=== PATIENT | female | born 1970 | race African-American/Black ===

== ENCOUNTER 2017-12-12 07:59 | Outpatient (CLI) | payer BC ==
--- NOTE | 2017-12-12 10:09 | MRI ---
NONCONTRAST MRI CERVICAL SPINE: 12/12/2017 HISTORY: Cervical radiculitis. Spinal stenosis. The patient complains of neck pain and numbness in both arms for three years. COMPARISON: None available. FINDINGS: The visualized base of the brain and the cervicomedullary junction demonstrate a normal MRI appearanc e. C2-C3: There is mild disk osteophyte complex, which slightly narrows the ventral subarachnoid space. The neural foramina are patent. C3-C4: There is mild disk osteophyte complex, narrowing the ventral subarachnoid space. There is mi ld left-sided neural foraminal narrowing. The right neural foramen is patent. C4-C5: There are mild endplate degenerative changes present. There is loss of intervertebral disk h eight. There is broad-based disk osteophyte complex present, which results in generalized narrowing of the central spinal canal and flattening at the anterior aspect of the spinal cord, but there is no rmal signal intensity in the spinal cord. There is mild to moderate left-sided neural foraminal narr owing at the C4-C5 level. There is mild right neural foraminal narrowing. C5-C6: There are mild endplate degenerative changes. There is loss of intervertebral disk height. There is a broad-based disk osteophyte present, which results in generalized narrowing of the central spinal canal and flattening at the anterior aspect of the spinal cord, but there is normal signal in tensity in the spinal cord. There is severe left-sided neural foraminal narrowing. The right neural foramen is patent. C6-C7: There is a mild disk osteophyte complex, which results in slight effacement of the ventral chong barachnoid space. There is mild to moderate left-sided neural foraminal narrowing, but the right wanda ral foramen is patent. C7-T1: There is a mild disk osteophyte complex, which results in minimal narrowing of the ventral chong barachnoid space. There is mild bilateral neural foraminal narrowing. There is straightening of the normal cervical lordotic curvature. IMPRESSION: Multilevel degenerative changes present with findings greatest at the C4-C5 and C5-C6 levels. There is severe left-sided neural foraminal narrowing at the C5-C6 level. POS: [facility]
== END 2017-12-12 08:00 | disposition home or self-care (01) ==
LOC: TBSIIMAG 07:59
PROVIDERS: ATTEND Orthopaedic Surgery Hand Surgery
DX: M47.22 Other spondylosis with radiculopathy, cervical region (principal); M48.02 Spinal stenosis, cervical region; M99.81 Other biomechanical lesions of cervical region
CPT/HCPCS: 72141

== ENCOUNTER 2018-02-20 05:39 | Day surgery (SDC) | payer BC ==
[2018-02-18 11:46] VITALS: BMI 29.7
[2018-02-20] MEDS ORDERED: CEFAZOLIN 2 GM/50 ML BAG ONE ×2 (06:12→06:13)
[2018-02-20] MEDS ORDERED: Bupivacaine PF 0.5% 30 ML VIAL ONE ×2 (06:39→07:17)
[2018-02-20] MEDS ORDERED: Bacitracin Zinc Ointment 30 gm TUBE ONE (06:39)
[2018-02-20] MEDS ORDERED: Betamet Acet/Betamet Na Ph 30 MG/5 ML VIAL ONE ×2 (06:39→09:02)
[2018-02-20] MEDS ORDERED: Fentanyl 100 MCG/2 ML VIAL ONE ×3 (07:08→10:14)
[2018-02-20 07:11] LABS: #Eosinphils 0.3 thou/uL (0.0-0.7); #Lymphocytes 2.1 thou/uL (1.20-3.40); #Monocytes 0.5 thou/uL (0.11-0.59); #Neutrophils 3.2 thou/uL (1.40-6.50); %Basophils 0.5 % (0.0-1.0); %Lymphocytes 34.9 % (21.0-51.0); %Monocytes 7.8 % (0.0-10.0); %Neutrophils 51.8 % (42.0-75.0); Hemoglobin 12.9 g/dL (12.0-16.0); Mean Corpuscular HGB CONC 32.6 g/dL (32.0-36.0); Mean Corpuscular Hemoglobin 28.2 pg (27.0-31.0); Mean Corpuscular Volume 86.5 fL (78.0-98.0); Mean Platelet Volume 7.5 fL (7.4-10.4); Platelet Count 320 thou/uL (130-400); RBC Distribution Width 12.9 % (11.5-14.5); Red Blood Cell (RBC) Count 4.57 mill/uL (4.20-5.40); White Blood Cell (WBC) Count 6.2 thou/uL (4.8-10.8)
[2018-02-20] MEDS ORDERED: Midazolam HCl 2 mg/2 ml Vial ONE (07:27)
[2018-02-20] MEDS ORDERED: HYDROmorphone 2 MG/ML VIAL ONE (09:20)
[2018-02-20] MEDS ORDERED: Ketorolac Tromethamine 30 MG/ML VIAL ONE ×2 (10:22→12:02)
[2018-02-20] MEDS ORDERED: Lidocaine 1% PF 5 ML VIAL ONE (12:02)
[2018-02-20] MEDS ORDERED: PROPOFOL 200 MG/20 ML VIAL ONE (12:02)
[2018-02-20] MEDS ORDERED: Ondansetron PF 4 MG/2 ML Vial ONE (12:02)
[2018-02-20] MEDS ORDERED: PROVENTIL INHALER 6.7 G (200 INHALATIONS) ONE (12:02)
[2018-02-20] MEDS ORDERED: Dexamethasone 20 MG/5 ML VIAL ONE (12:02)
--- NOTE | 2018-02-23 09:42 | OP ---
PREOPERATIVE DIAGNOSES: 1. Right pronator teres syndrome. 2. Left pronator teres syndrome. 3. Right carpal tunnel syndrome. 4. Left carpal tunnel. POSTOPERATIVE DIAGNOSES: 1. Right pronator teres syndrome. 2. Left pronator teres syndrome. 3. Right carpal tunnel syndrome. 4. Left carpal tunnel. FINDINGS: Very tight pronator and the arc over the median nerve of the deep flexor at both pronator tunnel sites and stippling over a 5-6 mm area with early hourglass formation in the center of the car pal canal at both carpal tunnel sites. TOURNIQUET TIME: On the right, 30 minutes; on the left 30 minutes total. INJECTABLES: 15 mL half percent Marcaine: 7.5 at each of the 4 incisions or 15 mL each side or total of 30 mL half percent Marcaine . Other injectables drip technique over the median nerve a t each of the 4 incisions. ESTIMATED BLOOD LOSS: Bilaterally was less than or equal to 5 mL INDICATIONS: The patient failed conservative treatment with positive pronator compression test, posi tive direct compression at the pronator site, median nerve from here distally and proximally an d positive carpal tunnel exam and electrodiagnostics. Failed conservative treatment. ANESTHESIA: General LMA technique by [facility]. DESCRIPTION OF PROCEDURE: First, we prepped and draped the right side, outlined the incision that wa s zigzag beginning over the arterial pulse at the antecubital fossa, coursing zigzag just barely radi al to the palmaris longus tendon distally 8 cm from the crease. We then outlined the same as the sta ndard carpal tunnel incision as well, which was in line medial lateral with the ring finger as far pr oximal and 5 mm distal to the volar wrist flexion crease. We then exsanguinated the limb, gave injec tion of 15 mL of 0.5% Marcaine divided equally between these two incisions with no epinephrine and be ainsley. First, we approached the pronator site, made a zigzag incision, found and protected with blunt dissection the medial brachial cutaneous branches and the fat, identified the superficial radial nerv e and just radial to this, we were able to identify the one branch of the pronator teres, performed f ractional lengthening, then went through the lacertus fibrosus, releasing it, but not damaging the bi ceps tendon, found the median nerve as it coursed down into its valley and began to release all soft tissue. At the lacertus, released the fascia between the lacertus and the pronator, we then released the main pronator tendon with another fractional lengthening and at that point could visualize free the branch of the anterior interosseous nerve. From here, we dissected through soft tissue, and the standard between the flexor tendon heads, , as was released as well as the superficial flexor as well. Now, the median nerve was complete ly free. We placed 0.5 mL of Celestone in this area covered with a moist dressing and then proceeded to carpal tunnel. Carpal tunnel, we made our 2.5 cm incision carried through skin, subcutaneous tissue, and despite the injection, there was easy visualization, identified the transverse carpal ligament and entered in it s center portion just barely ulnar to the palmaris longus insertion on the transverse carpal ligament . Carried through skin and subcutaneous tissue, palmaris longus tear until we found the median nerve and the tendons. We then under direct visualization, released from here proximal using a combinatio n of Stutsman blade and tenotomy scissors. We used the same combination to release from the mid portio n proximally as we did distally with no undue damage. We released the tourniquet. Both wounds had e xcellent hemostasis and estimated blood as stated above was less than 10 mL. We then closed the pron ator incision with a running 3-0 Monocryl, which gave excellent opposition, so we then placed Steri-S trips with benzoin. We closed the carpal tunnel incision with interrupted 4-0 nylon in a mattress pattern and the patient had no complications.
== END 2018-02-20 11:48 | disposition home or self-care (01) ==
LOC: SDC 05:39
PROVIDERS: ATTEND Orthopaedic Surgery Hand Surgery
PROC: 01N50ZZ Release Median Nerve, Open Approach (ICD-10-PCS; principal; 2018-02-20)
DX: G56.13 Other lesions of median nerve, bilateral upper limbs (principal); G56.03 Carpal tunnel syndrome, bilateral upper limbs; E78.5 Hyperlipidemia, unspecified; F32.9 Major depressive disorder, single episode, unspecified; I10 Essential (primary) hypertension; M48.02 Spinal stenosis, cervical region; M54.12 Radiculopathy, cervical region; F17.210 Nicotine dependence, cigarettes, uncomplicated; Z79.52 Long term (current) use of systemic steroids; Z79.82 Long term (current) use of aspirin; Z79.899 Other long term (current) drug therapy
CPT/HCPCS: 85025; 85652; 96374; 96375; J0702; J1100; J1170; J1885; J2001; J2250; J2405; J2704; J3010; S0020

== ENCOUNTER 2018-12-10 10:02 | Outpatient (CLI) | payer BC ==
--- NOTE | 2018-12-10 10:39 | RAD ---
XR Knee Rt 3 View HISTORY: Right knee pain COMPARISON: None. FINDINGS: There are severe arthritic changes of the knee with prominent spur formation of the medial lateral and patellofemoral compartments area there is mild medial compartment narrowing present. There is a small joint effusion. IMPRESSION: Marked arthritic changes of the knee.
== END 2018-12-10 10:03 | disposition home or self-care (01) ==
LOC: BICRAD 10:02
PROVIDERS: ATTEND Family Medicine
DX: M25.561 Pain in right knee (principal); M17.11 Unilateral primary osteoarthritis, right knee

== ENCOUNTER 2019-06-02 08:34 | Outpatient (CLI) | payer BC ==
--- NOTE | 2019-06-02 09:32 | MMO ---
Bilateral MAMMO Bilat Screen [facility]. CLINICAL HISTORY: Patient is 48 years old and is seen for screening. The patient has no family history of breast cancer. The patient has no personal history of cancer. VIEWS: The views performed were: bilateral craniocaudal with tomosynthesis and bilateral mediolateral oblique with tomosynthesis. FILMS COMPARED: The present examination has been compared to prior imaging studies performed at [facility] on 10/07/2014 and 03/13/2017. This study has been interpreted with the assistance of computer-aided detection. MAMMOGRAM FINDINGS: There are scattered fibroglandular densities. There are no suspicious masses, suspicious calcifications, or new areas of architectural distortion. IMPRESSION: THERE IS NO MAMMOGRAPHIC EVIDENCE OF MALIGNANCY. A ROUTINE FOLLOW-UP MAMMOGRAM IN 1 YEAR IS RECOMMENDED. THE RESULTS OF THIS EXAM WERE SENT TO THE PATIENT. ACR BI-RADS Category 1 - Negative MAMMOGRAPHY NOTE: 1. A negative mammogram report should not delay a biopsy if a dominant of clinically suspicious mass is present. 2. Approximately 10% to 15% of breast cancers are not detected by mammography. 3. Adenosis and dense breasts may obscure an underlying neoplasm. Reported by: MARYURI HERNANDEZ MD Electonically Signed: [id number]
== END 2019-06-02 08:35 | disposition home or self-care (01) ==
LOC: BICMAMMO 08:34
PROVIDERS: ATTEND Family Medicine
DX: Z12.31 Encounter for screening mammogram for malignant neoplasm of breast (principal)
CPT/HCPCS: 77063; 77067

== ENCOUNTER 2019-09-08 15:15 | Inpatient (IN) | payer BC ==
[2019-09-13] MEDS ORDERED: Vancomycin 1 GM/200 ML BAG ONE (07:20)
[2019-09-13] MEDS ORDERED: Sodium Chloride 0.9% 100 ML ONE (07:20)
[2019-09-13] MEDS ORDERED: Tranexamic Acid 1,000 MG/10 ML VIAL ONE (07:20)
[2019-09-13] MEDS ORDERED: Midazolam HCl 2 mg/2 ml Vial ONE (08:23)
[2019-09-13] MEDS ORDERED: Fentanyl 100 MCG/2 ML VIAL ONE ×5 (08:23→12:25)
[2019-09-13] MEDS ORDERED: HYDROcodone/Acetaminophen 10/325 mg Tablet PO PRN (09:10)
[2019-09-13] MEDS ORDERED: Ondansetron PF 4 MG/2 ML Vial IVP PRN ×2 (09:10→09:49)
[2019-09-13] MEDS ORDERED: Zolpidem Tartrate 5 MG TAB PO PRN ×2 (09:10→09:49)
[2019-09-13] MEDS ORDERED: traMADol HCl 50 MG TAB PO PRN ×2 (09:10)
[2019-09-13] MEDS ORDERED: Promethazine HCl 25 MG/ML VIAL IM PRN ×2 (09:10→09:49)
[2019-09-13] MEDS ORDERED: Fentanyl 100 MCG/2 ML VIAL IV PRN (09:11)
[2019-09-13] MEDS ORDERED: Ropivacaine HCl/PF 250 ML in Premix Bag 1 BAG NERVE BLCK SCH (09:14)
[2019-09-13] MEDS ORDERED: Bupivacaine PF 0.5% 30 ML VIAL ONE ×2 (09:16→11:01)
[2019-09-13] MEDS ORDERED: diphenhydrAMINE 25 MG CAP PO PRN (09:49)
[2019-09-13] MEDS ORDERED: Acetaminophen 325 MG TAB PO PRN (09:49)
[2019-09-13] MEDS ORDERED: Nitroglycerin 0.4 MG TAB (25 Tab Bottle) SL PRN (09:52)
[2019-09-13] MEDS ORDERED: Tranexamic Acid 1,000 MG in Sodium Chloride 0.9% 100 ML IVPB SCH (10:00)
[2019-09-13] MEDS ORDERED: Ergocalciferol 1.25 MG(50,000 UNITS) CAP PO SCH (10:00)
[2019-09-13] MEDS ORDERED: PROPOFOL 200 MG/20 ML VIAL ONE (10:53)
[2019-09-13] MEDS ORDERED: Lidocaine 1% PF 5 ML VIAL ONE (10:53)
[2019-09-13] MEDS ORDERED: Dexamethasone 20 MG/5 ML VIAL ONE (10:53)
[2019-09-13] MEDS ORDERED: Ondansetron PF 4 MG/2 ML Vial ONE (10:53)
[2019-09-13] MEDS ORDERED: Bupivacaine HCl 0.5%/Epinephrine 1:200,000/PF 30 ml Vial ONE (10:53)
[2019-09-13] MEDS ORDERED: Ropivacaine 0.2% HCl/PF (40 MG/20 ML VIAL) ONE (10:53)
[2019-09-13] MEDS ORDERED: EPINEPHrine 1 MG/ML AMP ONE (11:01)
[2019-09-13] MEDS ORDERED: Ropivacaine 0.2% HCl/PF 20 ML ONE (11:01)
[2019-09-13] MEDS ORDERED: hydrALAZINE 20 MG/ML VIAL ONE (12:49)
[2019-09-13] MEDS ORDERED: Ketorolac Tromethamine 30 MG/ML VIAL ONE (12:59)
[2019-09-13] MEDS ORDERED: Hydrochlorothiazide 25 MG TAB PO SCH (14:45)
[2019-09-13] MEDS ORDERED: Losartan 25 MG TAB PO SCH (14:45)
[2019-09-13] MEDS: Ketorolac Tromethamine 30 MG/ML VIAL IVP SCH ×2 (14:56→19:18)
--- NOTE | 2019-09-13 15:09 | OP ---
DATE OF PROCEDURE: 09/13/2019 RESTROOMS OR LOUNGES MAID: Destin Barragan PA-C PREOPERATIVE DIAGNOSIS: Right knee osteoarthrosis. POSTOPERATIVE DIAGNOSIS: Right knee osteoarthrosis. PROCEDURE: Right total knee replacement using [employer] pinless navigation system. ANESTHESIA: She did have general anesthetic as well as preoperative femoral block. There was no sciatic block. BLOOD LOSS: Minimal. COMPLICATIONS: None. TOURNIQUET TIME: DISPOSITION: She did go to recovery room in stable condition. IMPLANTS: [employer] total knee system. The femur was a size 3 cruciate retaining femur. We used a size 3 primary tibial baseplate. We used a 3 x 9 mm CS X3 tibial bearing, and a symmetric 27 x 8 X3 patella. INDICATIONS: A 48-year-old female who has failed all nonoperative treatment and at this time wished to have her knee replaced. PROCEDURE IN DETAIL: After all appropriate consent forms were explained and signed, the patient was taken back to the operating room and at this time was given general anesthetic. Once the level of anesthesia was appropriate, a well-padded tourniquet was placed on the right leg, and the leg was then prepped and draped in standard surgical fashion. The limb was exsanguinated and tourniquet taken up to 300 mmHg. Midline incision was made with a 10 blade down through the skin and subcutaneous tissue. Bovie electrocautery was used to coagulate any brisk venous bleeding. A new blade was used to make a medial parapatellar arthrotomy. Small subperiosteal release was performed medially and excess fat pad was removed. The knee was flexed up to gain access to the femur. The femur was navigated and distal femoral resection was made. Epicondylar access was used to align our sizing jig and this was pinned in place. We sized our femur to be a size 3 cruciate-retaining femur. 4:1 cutting block was applied and pinned. Anterior and posterior chamfer cuts were then made. We navigated out our proximal tibia and made our proximal tibial resection. Spreaders were used to remove any posterior osteophytes off the back of the femur as well as remaining meniscal tissue. A long alignment eloise was then used to achieve correct rotation of our tibial baseplate and a size 3 primary tibial baseplate was chosen. This was pinned in place. We trialed the polyethylene and a 3 x 9 mm CS X3 tibial bearing polyethylene gave us full extension and good stability throughout range of motion. Two towel clips and a saw were used to cut our patella. Three lug nuts were drilled and a symmetric 27 x 8 X3 patella was trialed which sat nicely in the trochlear groove. We then drilled our femur and punched our tibia. All components were removed. The knee was thoroughly irrigated and dried. Cement was mixed into the cement gun on the back table. Components were then placed. The knee was held out in full extension until the cement had dried. All excess bone cement was removed. Multiple #2 Vicryl stitches as well as a Quill were used to close our extensor mechanism. 0 Quill followed by a running Monoderm was then used to close the skin. Surgicel glue was then used on the skin. Once this had dried, soft tissue dressing was applied to the limb, tourniquet was let down, and the toes pinked up nicely. The patient was then awakened and taken to the recovery room in stable condition. All counts were correct at the end of the case. The patient did receive preoperative IV antibiotics. The patient was injected with Marcaine for postoperative pain relief. Job ID: [id number]
[2019-09-13] MEDS ORDERED: hydrALAZINE 20 MG/ML VIAL SLOW IVP PRN (16:26)
--- NOTE | 2019-09-13 16:51 | CON ---
DATE OF CONSULTATION: 09/13/2019 PRIMARY CARE PROVIDER: Unknown. CHIEF COMPLAINT: Management of medical comorbidities. HISTORY OF PRESENT ILLNESS: Ms. Cain is a pleasant 48-year-old lady, who was seen at [facility] on September 13, 2019. Earlier today, she underwent right total knee replacement for a right knee osteoarthrosis. Hospitalist Service has been consulted for management of medical comorbidities. The patient denies any chest pain or shortness of breath. She denies any fevers or chills. She denies any nausea or vomiting. She reports that the pain in the right knee is controlled. REVIEW OF SYSTEMS: All systems were reviewed and found to be negative except for the pertinent positives mentioned above. PAST MEDICAL HISTORY: Hypertension, dyslipidemia, valvular heart disease, bradycardia, cervical spine stenosis, sciatica, and depression. PAST SURGICAL HISTORY: x3, gallbladder surgery. FAMILY HISTORY: Prostate cancer in her father, COPD in her mother. SOCIAL HISTORY: The patient denies tobacco use, alcohol use, or recreational drug use. ALLERGIES: DULOXETINE AND LISINOPRIL. HOME MEDICATIONS: 1. Aspirin 81 mg daily. 2. Vitamin D3 of 1250 mcg every week. 3. Celexa 10 mg daily. 4. Flexeril 5 mg at bedtime. 5. Gabapentin 300 mg at bedtime. 6. Lovastatin 10 mg in the evening. 7. Nitroglycerin p.r.n. 8. Olmesartan/hydrochlorothiazide 40/25 mg daily. 9. Protonix 40 mg daily. 10. Ambien 10 mg at bedtime. PHYSICAL EXAMINATION: GENERAL: On examination, Ms. Cain is awake and alert, not in acute distress. VITAL SIGNS: Stable. EYES: No scleral icterus. No conjunctival pallor. ENT: Moist mucosal membranes. No oropharyngeal erythema or exudates. NECK: Supple, nontender. Trachea is midline. RESPIRATORY: Accessory muscles of breathing are not active. Chest wall movements are symmetric bilaterally. Lungs are clear to auscultation without wheezes, rhonchi, or crepitations. CARDIOVASCULAR: S1 and S2 are heard, regular. Peripheral pulses palpable. ABDOMEN: Soft, nontender. Bowel sounds are heard. NEUROLOGIC: Cranial nerves 2 through 12 are intact. MUSCULOSKELETAL: Status post right knee surgery. SKIN: No rashes. LYMPHATIC: No cervical lymphadenopathy. PSYCHIATRIC: Normal mood. Normal affect. The patient is oriented to person, place, and time. LABORATORY DATA: Ms. Cain's labs and investigations were reviewed. On September 08, 2019, she had an unremarkable CBC, INR 0.9, normal chem-7, and normal urinalysis. ASSESSMENT AND PLAN: Ms. Cain is a pleasant 48-year-old lady, who was seen at [facility] on September 13, 2019. Her problem list includes: 1. Hypertension: Her blood pressures were reportedly elevated in the operating room, but they are normalizing now. I will add p.r.n. IV hydralazine. I will resume her home medications. We will monitor vital signs and titrate antihypertensives as needed. 2. Dyslipidemia: Continue statin. 3. Depression: Mild, stable. LEVEL OF RISK: Moderate. LEVEL OF COMPLEXITY: Moderate. Many thanks for allowing me to participate in your patient's care. Please feel free to contact me with any questions or concerns. Job ID: [id number]
[2019-09-13] MEDS: CEFAZOLIN 2 GM in Premix Bag 1 BAG IVPB SCH (17:07)
[2019-09-13] MEDS: Sodium Chloride 0.9% 1,000 ML IV SCH ×2 (17:11→21:00)
[2019-09-13] MEDS: Simvastatin 5 MG TAB PO SCH (17:18)
[2019-09-13] MEDS: HYDROcodone/Acetaminophen 10/325 mg Tablet PO PRN (19:21)
[2019-09-13] MEDS ORDERED: Vancomycin 1 GM in Premix Bag 1 BAG IVPB SCH (20:00)
[2019-09-13] MEDS: Aspirin 81 mg Enteric Coated Tablet PO SCH (21:34)
[2019-09-13] MEDS: Cyclobenzaprine 10 MG TAB PO SCH (21:34)
[2019-09-13] MEDS: Zolpidem Tartrate 5 MG TAB PO SCH (21:35)
[2019-09-13] MEDS: Gabapentin 300 MG CAP PO SCH (21:35)
[2019-09-14] MEDS: CEFAZOLIN 2 GM in Premix Bag 1 BAG IVPB SCH (00:05)
[2019-09-14] MEDS: Ketorolac Tromethamine 30 MG/ML VIAL IVP SCH ×4 (00:05→18:12)
[2019-09-14] MEDS: Sodium Chloride 0.9% 1,000 ML IV SCH ×2 (05:20→17:03)
[2019-09-14 05:39] LABS: Hemoglobin 11.1 g/dL (12.0-16.0); Mean Corpuscular HGB CONC 32.1 g/dL (32.0-36.0); Mean Corpuscular Hemoglobin 26.5 pg (27.0-31.0); Mean Corpuscular Volume 82.5 fL (78.0-98.0); Mean Platelet Volume 8.2 fL (7.4-10.4); Platelet Count 301 thou/uL (130-400); RBC Distribution Width 14.4 % (11.5-14.5); Red Blood Cell (RBC) Count 4.19 mill/uL (4.20-5.40); White Blood Cell (WBC) Count 10.2 thou/uL (4.8-10.8)
[2019-09-14] MEDS: Multivitamin W/ Minerals 1 TAB PO SCH (07:58)
[2019-09-14] MEDS: Senokot S 8.6-50 MG TAB PO SCH ×2 (07:58→21:14)
[2019-09-14] MEDS: Losartan 25 MG TAB PO SCH (07:58)
[2019-09-14] MEDS: Aspirin 81 mg Enteric Coated Tablet PO SCH ×2 (07:59→21:13)
[2019-09-14] MEDS: Hydrochlorothiazide 25 MG TAB PO SCH (07:59)
[2019-09-14] MEDS: Ferrous Gluconate 324 MG TAB PO SCH ×2 (07:59→18:12)
[2019-09-14] MEDS ORDERED: Aspirin 81 mg Enteric Coated Tablet PO SCH (09:00)
[2019-09-14] MEDS: HYDROcodone/Acetaminophen 10/325 mg Tablet PO PRN ×2 (09:18→16:20)
[2019-09-14] MEDS: Citalopram 10 MG TAB PO SCH (09:19)
[2019-09-14] MEDS: Simvastatin 5 MG TAB PO SCH (18:12)
--- NOTE | 2019-09-14 19:14 | PDOC.HOSPP ---
- Subjective Encounter Date: 09/14/19 Encounter Time: :20 Subjective: Pt seen for followup re: hypertension. Feels well, no complaints. - Objective Vital Signs & Weight: Vital Signs (12 hours) Temp Pulse Resp BP BP Pulse Ox 09/14/19 16:44 97.9 F 71 16 158/86 H 100 09/14/19 11:30 97.9 F 71 16 166/96 H 97 09/14/19 08:00 98 09/14/19 07:36 98.1 F 78 16 144/91 H 98 Weight Admit Weight 175 lb Weight 175 lb I&O: 09/13/19 09/14/19 09/15/19 06:59 06:59 06:59 Intake Total 2910 Output Total 3200 Balance -290 Result Diagrams: 09/14/19 04:55 Additional Labs: Labs and MARs reviewed by pa Hospitalist ROS - Review of Systems Cardiovascular: denies: chest pain, palpitations, orthopnea, paroxysmal noc. dyspnea, edema, light headedness Gastrointestinal: denies: nausea, vomiting, abdominal pain, diarrhea, constipation, melena, hematochezia - Medication Medications: Active Medications Generic Name Dose Route Start Last Admin Trade Name Freq PRN Reason Stop Dose Admin Hydrocodone Bitart/Acetaminophen 2 tab 09/13/19 09:10 09/14/19 16:20 [place] 10/325 PO 2 tab Q4H PRN Administration PAIN (4-6) Aspirin 81 mg 09/13/19 21:00 09/14/19 07:59 Ecotrin PO 81 mg BID NENA Administration Citalopram Hydrobromide 10 mg 09/14/19 09:00 09/14/19 09:19 Celexa PO 10 mg DAILY NENA Administration Cyclobenzaprine HCl 5 mg 09/13/19 21:00 09/13/19 21:34 Flexeril PO 5 mg HS NENA Administration Ergocalciferol 1.25 mg 09/13/19 10:00 09/13/19 17:10 Drisdol PO Not Given Q7D NENA Ferrous Gluconate 324 mg 09/14/19 08:00 09/14/19 18:12 Fergon PO 324 mg BID-WM NENA Administration Gabapentin 300 mg 09/13/19 21:00 09/13/19 21:35 Neurontin PO 300 mg HS NENA Administration Hydrochlorothiazide 25 mg 09/14/19 09:00 09/14/19 07:59 Hydrochlorothiazide PO 25 mg DAILY NENA Administration Ropivacaine 250 ml/ Device 250 mls @ 10 mls/hr 09/13/19 09:14 09/14/19 12:27 NERVE BLCK 09/16/19 09:13 250 mls INF NENA Administration Sodium Chloride 1,000 mls @ 100 mls/hr 09/13/19 10:00 09/14/19 17:03 Normal Saline 0.9% IV Not Given .Q10H NENA Iron/Minerals/Multivitamins 1 tab 09/14/19 09:00 09/14/19 07:58 Theragran M PO 1 tab DAILY NENA Administration Ketorolac Tromethamine 30 mg 09/13/19 12:00 09/14/19 18:12 Toradol IVP 09/15/19 06:01 30 mg Q6HR NENA Administration Losartan Potassium 100 mg 09/14/19 09:00 09/14/19 07:58 Cozaar PO 100 mg DAILY NENA Administration Ondansetron HCl 4 mg 09/13/19 09:49 09/13/19 17:06 Zofran IVP 4 mg Q6H PRN Administration Nausea/Vomiting Pantoprazole Sodium 40 mg 09/14/19 09:00 09/14/19 07:59 Protonix PO 40 mg DAILY NENA Administration Senna/Docusate Sodium 2 tab 09/14/19 09:00 09/14/19 07:58 Senokot S PO 2 tab BID NENA Administration Simvastatin 5 mg 09/13/19 17:00 09/14/19 18:12 Zocor PO 5 mg QPM-WM NENA Administration Zolpidem Tartrate 10 mg 09/13/19 21:00 09/13/19 21:35 Ambien PO 10 mg HS NENA Administration - Exam General Appearance: awake alert General - other findings: Obese Eye: anicteric sclera ENT: moist mucosa Neck: supple Heart: RRR Respiratory: CTAB Gastrointestinal: soft, non-tender Extremities - other findings: s/p R knee surgery Neurological: no focal deficits Psychiatric: normal affect, normal behavior Hosp A/P (1) HTN (hypertension) Code(s): I10 - ESSENTIAL (PRIMARY) HYPERTENSION Status: Chronic (2) Dyslipidemia Code(s): E78.5 - HYPERLIPIDEMIA, UNSPECIFIED Status: Chronic (3) Depression Code(s): F32.9 - MAJOR DEPRESSIVE DISORDER, SINGLE EPISODE, UNSPECIFIED Status : Chronic - Plan BP elevated at times, continue PRN IV hydralazine PT/OT Ambulate pt s/p R knee surgery Continue Celexa Continue statin Depression mild, stable DVT prophylaxis and pain management per orthopedic surgery service.
[2019-09-14] MEDS: Cyclobenzaprine 10 MG TAB PO SCH (21:14)
[2019-09-14] MEDS: Zolpidem Tartrate 5 MG TAB PO SCH (21:14)
[2019-09-14] MEDS: Gabapentin 300 MG CAP PO SCH (21:14)
[2019-09-15] MEDS: Ketorolac Tromethamine 30 MG/ML VIAL IVP SCH ×2 (01:00→05:26)
[2019-09-15] MEDS: HYDROcodone/Acetaminophen 10/325 mg Tablet PO PRN ×3 (02:10→15:23)
[2019-09-15] MEDS: Sodium Chloride 0.9% 1,000 ML IV SCH ×2 (03:00→11:49)
[2019-09-15 05:35] LABS: Hemoglobin 10.6 g/dL (12.0-16.0); Mean Corpuscular HGB CONC 32.8 g/dL (32.0-36.0); Mean Corpuscular Hemoglobin 27.5 pg (27.0-31.0); Mean Corpuscular Volume 83.8 fL (78.0-98.0); Mean Platelet Volume 8.1 fL (7.4-10.4); Platelet Count 255 thou/uL (130-400); RBC Distribution Width 14.3 % (11.5-14.5); Red Blood Cell (RBC) Count 3.87 mill/uL (4.20-5.40); White Blood Cell (WBC) Count 6.7 thou/uL (4.8-10.8)
[2019-09-15] MEDS: Aspirin 81 mg Enteric Coated Tablet PO SCH (08:21)
[2019-09-15] MEDS: Senokot S 8.6-50 MG TAB PO SCH (08:22)
[2019-09-15] MEDS: Multivitamin W/ Minerals 1 TAB PO SCH (08:22)
[2019-09-15] MEDS: Hydrochlorothiazide 25 MG TAB PO SCH (08:22)
[2019-09-15] MEDS: Ferrous Gluconate 324 MG TAB PO SCH (08:23)
[2019-09-15] MEDS: Losartan 25 MG TAB PO SCH (08:23)
[2019-09-15] MEDS: Citalopram 10 MG TAB PO SCH (08:45)
[2019-09-15 12:32] VITALS: BP 169/84; TEMP 97.9
--- NOTE | 2019-09-15 16:40 | PRG ---
DATE OF SERVICE: 09/14/2019 SUBJECTIVE: Fay is a 48-year-old female, who is postop day 1 from a right total knee arthroplasty. She is doing relatively well. She has no complaints. OBJECTIVE: VITAL SIGNS: Temperature 98.1, pulse 78, respiratory rate 16, O2 saturation 98% on room air, blood pressure 144/91. GENERAL: She is alert, oriented to person, place, time, and situation. Responsive and appropriate with the examiner. In no apparent distress. EXTREMITIES: Visual inspection of the right knee demonstrates her incision to be clean. No strikethrough. No erythema. She is neurovascularly intact in the right lower extremity. LABORATORY DATA: Hemoglobin and hematocrit of 11 and 34. IMPRESSION: A 48-year-old female postop day 1 right total knee arthroplasty, doing well. PLAN: Continue current care. Probable discharge home tomorrow. Job ID: [id number]
== END 2019-09-15 15:30 | disposition home or self-care (01) | DRG 470 ==
LOC: SURG A 09-13 07:03 → SJJU 09-13 13:40
PROVIDERS: ADMIT Orthopaedic Surgery; ATTEND Orthopaedic Surgery
PROC: 0SRC0J9 Replacement of Right Knee Joint with Synthetic Substitute, Cemented, Open Approach (ICD-10-PCS; principal; 2019-09-13)
DX: M17.11 Unilateral primary osteoarthritis, right knee (principal); I10 Essential (primary) hypertension; E78.5 Hyperlipidemia, unspecified; J30.2 Other seasonal allergic rhinitis; E66.9 Obesity, unspecified; F17.200 Nicotine dependence, unspecified, uncomplicated; F12.10 Cannabis abuse, uncomplicated; F32.9 Major depressive disorder, single episode, unspecified; F41.9 Anxiety disorder, unspecified; Z68.30 Body mass index [BMI] 30.0-30.9, adult
CPT/HCPCS: 36415; 85027; C1713; C1776; J0171; J0360; J0670; J0690; J1100; J1885; J2001; J2250; J2405; J2704; J2795; J3010; J3370; J3490; S0020

== ENCOUNTER 2019-09-09 06:11 | Outpatient (CLI) | payer BC, OTHER ==
[2019-09-09 11:42] LABS: #Eosinphils 0.3 thou/uL (0.0-0.7); #Lymphocytes 1.9 thou/uL (1.20-3.40); #Monocytes 0.3 thou/uL (0.11-0.59); #Neutrophils 3.3 thou/uL (1.40-6.50); %Basophils 0.4 % (0.0-1.0); %Eosinophils 4.6 % (0.0-10.0); %Lymphocytes 33.5 % (21.0-51.0); %Neutrophils 56.6 % (42.0-75.0); Hemoglobin 13.8 g/dL (12.0-16.0); Mean Corpuscular HGB CONC 32.4 g/dL (32.0-36.0); Mean Corpuscular Hemoglobin 27.4 pg (27.0-31.0); Mean Corpuscular Volume 84.6 fL (78.0-98.0); Mean Platelet Volume 8.9 fL (7.4-10.4); Platelet Count 299 thou/uL (130-400); RBC Distribution Width 14.6 % (11.5-14.5); Red Blood Cell (RBC) Count 5.05 mill/uL (4.20-5.40); White Blood Cell (WBC) Count 5.8 thou/uL (4.8-10.8)
[2019-09-09 12:03] LABS: Anion Gap 13 mmol/L (10-20); BUN (Urea Nitrogen) 15 mg/dL (7.0-18.7); Calc. Creatinine Clearance 0 mL/min (70-130); Calcium 9.8 mg/dL (7.8-10.44); Carbon Dioxide 29 mmol/L (22-29); Chloride 102 mmol/L (98-107); Estimated GFR-MDRD 80; Glucose 90 mg/dL (70-105); Potassium 3.9 mmol/L (3.5-5.1); Sodium 140 mmol/L (136-145)
[2019-09-09 12:10] LABS: INR-International Normal Ratio 0.9; Prothrombin Time 12.3 sec (12.0-14.7)
[2019-09-09 12:59] LABS: BHCG - Serum Negative (NEGATIVE); Pregs Control Background? CLEAR/WHITE (CLR/WHITE); Pregs Control Bar Appear? YES (CONTROL BAR)
[2019-09-09 13:19] LABS: Bacteria/HPF None Seen HPF (None Seen); Bilirubin Negative (Negative); Blood, Urine Negative (Negative); Clarity Clear (Clear); Glucose, Urine (Dipstick) Normal (Negative); Leukocyte Negative Leu/uL (Negative); Nitrite Negative (Negative); Protein, Urine (Dipstick) Negative (Neg-Trace); RBC/HPF 0-3 HPF (0-3); Squamous Epithelial 0-3 HPF (0-3); Urobilinogen Normal mg/dL (Less than 2); WBC/HPF 0-3 HPF (0-3)
== END 2019-09-09 06:12 | disposition home or self-care (01) ==
LOC: LABBT 06:11
PROVIDERS: ATTEND Orthopaedic Surgery
DX: Z01.818 Encounter for other preprocedural examination (principal); Z11.59 Encounter for screening for other viral diseases; M17.11 Unilateral primary osteoarthritis, right knee
CPT/HCPCS: 80048; 81001; 84703; 85025; 85610; 87081; 87635; 93005; 93010; U0003